=== PATIENT | female | born 1990 | race Two or more races ===

== ENCOUNTER → 2024-05-24 | Outpatient (CLI) | payer BC, SELFPAY ==
[2024-05-24 11:25] LABS: Basophils % (Auto) 1 % (0-2.5); Eosinophils # (Auto) 0.1 Thou/mm3 (0.0-0.5); Eosinophils % (Auto) 1 % (0-10); Hematocrit 35.6 % (36.0-46.0); Hemoglobin 12.1 g/dL (12.0-16.0); Immature Granulocytes % (Auto) 0 % (0-0); Immature Granulocytes Auto 0.01 Thou/mm3 (0.00-0.00); Lymphocytes # (Auto) 1.9 Thou/mm3 (1.0-4.8); Lymphocytes % (Auto) 29 % (10-50); Mean Corpuscular Hemoglobin 30.2 pg (25.0-35.0); Mean Corpuscular Volume 89 fL (80-100); Monocytes # (Auto) 0.5 Thou/mm3 (0.0-0.8); Monocytes % (Auto) 7 % (0-12); Neutrophils # (Auto) 4.2 Thou/mm3 (1.8-7.7); Neutrophils % (Auto) 63 % (37-80); Nucleated Red Blood Cell % 0 /100 WBC (0); Platelet Count 281 Thou/mm3 (140-440); RDW Standard Deviation 42.1 fL (36.4-46.3); Red Blood Count 4.01 Miln/mm3 (4.00-5.20); White Blood Count 6.7 Thou/mm3 (3.6-11.0)
[2024-05-24 11:45] LABS: Glucose Estimated Average 100 mg/dL (80-131); Hemoglobin A1C 5.1 % Hgb (4.8-6.0)
[2024-05-24 11:50] LABS: T4 (Thyroxine) 7.5 mcg/dL (4.5-10.9)
[2024-05-24 12:02] LABS: Alanine Aminotransferase 15 U/L (10-49); Albumin, Serum 4.7 gm/dL (3.5-5.0); Albumin/Globulin Ratio 1.8 (1.2-2.2); Alkaline Phosphatase 61 U/L (46-116); Anion Gap 7 (7-16); Aspartate Amino Transferase 18 U/L (0-34); BUN/Creatinine Ratio 19 Ratio (12-20); Bilirubin,Total 0.5 mg/dL (0.3-1.2); Blood Urea Nitrogen 13 mg/dL (9-23); Calcium 9.4 mg/dL (8.3-10.6); Calcium (Corrected) 9.4 mg/dL (8.5-10.1); Carbon Dioxide 27.5 mMol/L (20.0-31.0); Cardiac Risk Estimate 4.5 RATIO (3.7-5.6); Chloride 103 mMol/L (98-107); Cholesterol 200 mg/dL (132-200); Creatinine (Component) 0.7 mg/dL (0.6-1.3); Globulin 2.6 gm/dL (2.3-3.5); Glucose 93 mg/dL (74-106); HDL Cholesterol 44 mg/dL (40-60); LDL Cholesterol,Calculated 130 mg/dL (0-130); Osmolality,Calculated 273 (275-295); Potassium 4.5 mMol/L (3.4-5.1); Sodium 137 mMol/L (136-145); Thyroid Stimulating Hormone 0.83 uIU/mL (0.55-4.78); Total Protein 7.3 gm/dL (5.7-8.2); Triglycerides 129 mg/dL (30-150); eGFR > 60 See Note
== END | disposition home or self-care (01) ==
LOC: COPL 10:46
PROVIDERS: PCP Family Medicine; Referring Provider Family Medicine; Visit Provider Family Medicine
DX: R03.0 Elevated blood-pressure reading, without diagnosis of hypertension (principal); R79.9 Abnormal finding of blood chemistry, unspecified
CPT/HCPCS: 36415; 80053; 80061; 83036; 84436; 84443; 85025

== ENCOUNTER 2024-10-12 10:47 | Outpatient (AMB) | payer BC, SELFPAY ==
[2024-10-12 11:26] VITALS: BP 136/62; PULSE 108; RESP 18; TEMP 36.2; O2SAT 98; BMI 23.8
--- NOTE | 2024-10-12 11:26 | AMB.GYNCLNOT ---
Vital Signs 10/12/24 11:26 Height 1.65 m Height Method Stated Weight 64.92 kg Weight Measurement Method Standing Scale BMI 23.8 BP 136/62 H Blood Pressure Source Automatic Cuff Blood Pressure Location Left Upper Arm Position Sitting Respiration 18 Pulse 108 H Pulse Source Monitor Temp 97.2 F Temp Source Oral Pulse Oximetry (%) 98 Oxygen Delivery Method Room Air Allergies/Home Meds Allergies & Medications Allergies NKA* Allergy (Uncoded 10/12/24 11:28) Medication Reconciliation vitamin #56-iron 35 mg and 5 mg-folic acid 1 mg-dha capsule 1 cap PO QDAY 10/12/24 [History] Intake Visit Data Collection New Patient or Established: New Patient (never been to [facility]) Reason for Visit:: CONFIRMATION OF Seen by Clinical Staff ONLY (RN/MA): No Time Study Analyst Required: No Do You Feel Safe at Home: Yes Authorities Contacted: N/A PCP or OBGYN visit in last 3 months: Yes Hx Now: Yes Are you currently on any form of Control: No Pain Present Currently: No Pain Scale Used: Salas-Arvizu/Numerical Pain scale:: 0 Smoking Status Smoking Status: Never smoker 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 Other Relevant History: Has seasonal allergies Denies any other chronic medical conditions Questionnaires Covid-19 Vaccine Questionnaire Has patient been vacinated for Covid-19 Have you been vacinated for Covid-19: Yes PHQ-9 PHQ-2 Over the last 2 weeks, how often have you been bothered by any of the following problems? 1. Little interest or pleasure in doing things: not at all 2. Feeling down, depressed, or hopeless: not at all Total score: 0 PHQ-9 3. Trouble falling or staying asleep, or sleeping too much: Not at all 4. Feeling tired or having little energy: Not at all 5. Poor appetite or overeating: Not at all 6. Feeling bad about yourself - or that you are a failure or have let yourself or your family down: Not at all 7. Trouble concentrating on things, such as reading the newspaper or watching television: Not at all 8. Moving or speaking so slowly that other people could have noticed? - Or the opposite - being so fidgety or restless that you have been moving around a lot more than usual: not at all 9. Thoughts that you would be better off or of hurting yourself in some way: Not at all Total score: 0 If you checked off any problems, how difficult have these problems made it for you to do your work, take care of things at home, or get along with other people?: not difficult at all Source: Developed by Drs. Avila Dial, Fawn Lema, Pj Baltazar and colleagues, with an educational harlan from [employer]. 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 She is sure of her last menstrual period which was 07/20/2024. She has been trying to get in to see an obstetrical provider. She denies any cramping or bleeding. She states she had a miscarriage at 10 weeks in 2022. She did not need a D&C. The patient thought she was done having babies before that and when she that , both her and her decided they wanted one more. She has a 14-year-old daughter at home and 9-year-old son and an 8-year-old son. She states the smallest baby was 8 lbs 1 oz and the largest was 8 lbs 11oz. She denies any problems with her pregnancies or deliveries. Dr. Yudith Martinez is her primary care Review of Systems Review of Systems Narrative Review of Systems: Mild nausea and vomiting. Seasonal allergies. The patient also reports fatigue. Exam Narrative Physical exam: Patient appears slightly pale. Fundus is firm and nontender General General Appearance: alert, in no apparent distress, comfortable, cooperative, healthy appearing and well groomed Results Objective Laboratory: test is positive in the office today Office Procedures OB Clinic LOC & Office Proc's Nursing/Assessment Patient Status: Initial/New Patient OB Clinic Nursing Assessment: Medication Reconciliation, Update PMH in EMR and Vital Signs OB Clinic Coordination of Care: Education Complex Pt/Fam, Consent,records obtained, informed consent, Lab and Imaging orders, Results/Orders obtained and Staff clarify orders New Patient Charge New Patient Point Assignment: [id number] New Patient Point Charge: HIDES INSPECTOR Level 3 ([id number]) In Clinic Bedside tests Bedside HCG: Yes Results Urine HCG Urine HCG Positive Last Edit by Geovanna Lee MA on 10/12/24 11:31 Assessment & Plan Diagnosis / Problem List (1) : Status: Acute Qualifiers: Weeks of gestation: 12 weeks Qualified Code(s): Z3A.12 - 12 weeks gestation of Assessment and Plan: LMP 07/20/2024. EDC by LMP 04/29/2025 which would make the patient 11-1/2 weeks . By ultrasound today patient is 12 weeks 5 days with an EDC of 04/20/2025. Check labs. Check official ultrasound. Follow-up in 4 weeks. Additional Plan Follow Up: 4 Weeks OB Ultrasound Indication Indication: Size dates and viability OB Ultrasound Ultrasound technique: transabdominal Gestational sac assessment: Presence, location, size, shape: A single live intrauterine is present with a crown-rump length of 6.29 cm corresponding to 12 weeks and 5 days with an EDC 04/20/2025. Cardiac activity is noted at 142 bpm
== END 2024-10-12 11:57 | disposition home or self-care (01) ==
LOC: HODSOBC 10:47
PROVIDERS: PCP Family Medicine; Referring Provider Family Medicine; Supervising Provider Obstetrics & Gynecology; Visit Provider Obstetrics & Gynecology
DX: Z32.01 Encounter for pregnancy test, result positive (principal)
CPT/HCPCS: 81025; 99203; G0463

== ENCOUNTER → 2024-10-12 | Outpatient (CLI) | payer BC, SELFPAY ==
[2024-10-12 12:48] LABS: Misc Send Out* See Sep Rpt
[2024-10-12 13:25] LABS: Basophils % (Auto) 0 % (0-2.5); Eosinophils # (Auto) 0.1 Thou/mm3 (0.0-0.5); Eosinophils % (Auto) 1 % (0-10); Hematocrit 32.6 % (36.0-46.0); Hemoglobin 11.7 g/dL (12.0-16.0); Immature Granulocytes % (Auto) 0 % (0-0); Immature Granulocytes Auto 0.05 Thou/mm3 (0.00-0.00); Lymphocytes # (Auto) 1.8 Thou/mm3 (1.0-4.8); Lymphocytes % (Auto) 14 % (10-50); Mean Corpuscular HGB Conc 35.9 g/dl (31.0-37.0); Mean Corpuscular Volume 86 fL (80-100); Monocytes # (Auto) 0.7 Thou/mm3 (0.0-0.8); Monocytes % (Auto) 6 % (0-12); Neutrophils # (Auto) 10.2 Thou/mm3 (1.8-7.7); Neutrophils % (Auto) 79 % (37-80); Nucleated Red Blood Cell % 0 /100 WBC (0); Platelet Count 324 Thou/mm3 (140-440); RDW Standard Deviation 39.1 fL (36.4-46.3); Red Blood Count 3.78 Miln/mm3 (4.00-5.20); White Blood Count 12.8 Thou/mm3 (3.6-11.0)
[2024-10-12 13:36] LABS: Glucose Estimated Average 97 mg/dL (80-131)
[2024-10-12 13:54] LABS: Syphilis Nonreactive (Nonreactive)
[2024-10-12 13:55] LABS: HIV (1&2) Antibody Rapid Non-Reactive
[2024-10-12 14:14] LABS: Hepatitis B Surface Antigen Non Reactive (Non React); Hepatitis C Antibody Non Reactive (Non React); Rubella, IgG Antibody Reactive (Immune)
[2024-10-18 07:02] LABS: Sm Antibody* <1.0 NEG AI (<1.0 NEGATIVE)
== END | disposition home or self-care (01) ==
LOC: COPL 12:20
PROVIDERS: PCP Family Medicine; Referring Provider Obstetrics & Gynecology; Visit Provider Obstetrics & Gynecology
DX: Z34.90 Encounter for supervision of normal pregnancy, unspecified, unspecified trimester (principal); Z3A.00 Weeks of gestation of pregnancy not specified
CPT/HCPCS: 36415; 83036; 85025; 86235; 86703; 86762; 86780; 86803; 86850; 86900; 86901; 87340; 87491; 87591; 87661

== ENCOUNTER → 2024-10-13 | Outpatient (CLI) | payer BC, SELFPAY ==
[2024-10-14 10:42] LABS: Chlamydia trachomatis PCR Negative (Not Detect); Neisseria Gonorrhoeae DNA PCR Negative (Not Detect); Trichomonas Negative (Negative)
== END | disposition home or self-care (01) ==
LOC: SLDO 15:47
PROVIDERS: Referring Provider Obstetrics & Gynecology; Visit Provider Obstetrics & Gynecology
DX: Z34.90 Encounter for supervision of normal pregnancy, unspecified, unspecified trimester (principal)
CPT/HCPCS: 87086; 87491; 87591; 87661

== ENCOUNTER → 2024-10-31 | Outpatient (CLI) | payer BC, SELFPAY ==
--- NOTE | 2024-10-31 11:30 | XR_ITS ---
Examination: Complete OB ultrasound greater than 14 weeks Date and time of exam: October 31, 2024 1135 hours INDICATIONS: Unknown size and dates Findings: Viable intrauterine single fetus with single amniotic sac presentation variable Cardiac motion 121 BPM Placenta posterior grade 1 Umbilical cord insertion seen Amniotic fluid index 9.7 cm Cervix 4.7 cm Right ovary 3.3 cm arterial flow Left ovary 2.4 cm arterial flow. Composite estimated gestational age based on BPD, head circumference, abdominal circumference, femur length is 15 weeks 2 days Estimated weight 120.8 g. Survey of intracranial anatomy, spinal anatomy, abdominal anatomy, four-chamber heart performed with no abnormalities identified. Impression: Viable intrauterine gestation variable presentation.
== END | disposition home or self-care (01) ==
PROVIDERS: PCP Family Medicine; Referring Provider Obstetrics & Gynecology; Visit Provider Obstetrics & Gynecology
DX: O26.849 Uterine size-date discrepancy, unspecified trimester (principal); Z3A.15 15 weeks gestation of pregnancy
CPT/HCPCS: 76805

== ENCOUNTER 2024-11-14 09:46 | Outpatient (AMB) | payer BC, SELFPAY ==
[2024-11-14 10:02] VITALS: BP 120/72; PULSE 85; RESP 17; TEMP 37; O2SAT 98; BMI 25.0
--- NOTE | 2024-11-14 10:02 | OBCLNT_ITS ---
Vital Signs 11/14/24 10:02 Height 1.65 m Height Method Measured Weight 68.266 kg Weight Measurement Method Standing Scale BMI 25.0 BP 120/72 Blood Pressure Source Automatic Cuff Blood Pressure Location Right Upper Arm Position Sitting Respiration 17 Pulse 85 Pulse Source Monitor Temp 98.6 F Temp Source Temporal Artery Scan Pulse Oximetry (%) 98 Oxygen Delivery Method Room Air Allergies/Home Meds Allergies & Medications Allergies amoxicillin Allergy (Verified 11/14/24 10:04) PENCILLIN Allergy (Uncoded 11/14/24 10:04) Medication Reconciliation vitamin #56-iron 35 mg and 5 mg-folic acid 1 mg-dha capsule 1 cap PO QDAY 10/12/24 [History Confirmed 11/14/24] Intake Visit Data Collection New Patient or Established: Established Patient (seen at [facility] within 3 years) Reason for Visit:: OBI Consent obtained for Telemed Visit: No Seen by Clinical Staff ONLY (RN/MA): No Cleaner Window Required: No Do You Feel Safe at Home: Yes Authorities Contacted: N/A PCP or OBGYN visit in last 3 months: Yes Date of Last PCP or OBGYN visit: 10/12/24 Hx Now: Yes Are you currently on any form of Control: No Last menstrual period: 07/20/24 Pain Present Currently: No Pain Scale Used: Salas-Arvizu/Numerical Pain scale:: 0 Smoking Status Smoking Status: Never smoker Questionnaires Covid-19 Vaccine Questionnaire Has patient been vacinated for Covid-19 Have you been vacinated for Covid-19: Yes PHQ-9 PHQ-2 Over the last 2 weeks, how often have you been bothered by any of the following problems? 1. Little interest or pleasure in doing things: not at all PHQ-9 8. Moving or speaking so slowly that other people could have noticed? - Or the opposite - being so fidgety or restless that you have been moving around a lot more than usual: not at all Source: Developed by Drs. Avila Dial, Fawn Lema, Pj Baltazar and colleagues, with an educational harlan from [employer]. 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 She was seen about a month ago and had an ultrasound and all lab work performed. Today she feels good. She is with the father the baby. OB Initial Visit OB Flowsheet OB Flowsheet Initial Weight: 67 kg Date -?-?-?-?-?-?-?-?-?-?-?-?- EGA Weight BP Alb Glu CTX Pres Fundal ht FHR Mov Dilation Station Effacement Hx Notes Visit Note 11/14/24 -?-?-?-?-?-?-?-?-?-?-?-?- 16w 5d 68.266 kg (+1265.651 g) 120/72 16 143 absent labs reviewed. Ultrasound at 7 weeks gives EDC of 04/22/2025 declines NIPT. Okay for level 2 ultrasound. Menstrual History Menstrual reliability: definite Flow: normal Menstrual regularity: regular Monthly: Yes Age at menarche: 12 On control pills at conception: No Date of positive home test: 08/16/24 OB History : 5 Para: 3 Hx # Pregnancies: 0 Hx Total # of Abortions (Spontaneous & Elective): 1 # of Living Children: 3 Delivery History 1st : Child's name: MILLICENT date: 03/11/10 sex: female Gestational age at delivery (weeks): 38 Delivery type: vaginal weight (lbs): 3628.739 g History of depression before or after : No 2nd : Child's name: ERIC date: 10/31/14 sex: male Gestational age at delivery (weeks): 38 Delivery type: vaginal weight (lbs): 3628.739 g weight (oz): 198.447 g History of depression before or after : No 3rd : Child's name: SHAINA date: 04/15/16 sex: male Gestational age at delivery (weeks): 38 Delivery type: vaginal weight (lbs): 3628.739 g weight (oz): 311.845 g History of depression before or after : No Infection History & Risk Evaluation History of STDs: none HIV risk evaluation: low risk Hepatitis B risk evaluation: low risk Patient or partner has history of Genital Herpes: No Genetic Screening & History Genetic Screening/Teratology Counseling - Includes patient, baby's father, or anyone in either family with: 1. Patient's age 35 years or older as of estimated date of delivery: No 2. Thalassemia (Irish, Bruneian, Mediterranean, or Background); MCV less than 80: No 3. Neural Tube Defect (Meningomyelocele, Spina Bifida, or Anencephaly): No 4. Congenital Heart Defect: No 5. Down Syndrome: No 6. Gatito-Sachs (Ashkenazi Church, Cajun, Latvian Senegalese): No 7. Alexsander Disease (Ashkenazi Church): No 8. Familial Dysautonomia (Ashkenazi Church): No 9. Sickle Cell Disease or Trait (): No 10. Hemophilia or other blood disorders: No 11. Muscular Dystrophy: No 12. Cystic Fibrosis: No 13. Shannan's Chorea: No 14. Mental Retardation/Autism: No 15. Other inherited genetic or chromosomal disorder: No 16. Maternal Metabolic Disorder (EG,TYPE 1 Diabetes, PKU): No 17. Patient or baby's father had a child with defects not listed above: No 19. Medications (including supplements, vitamins, herbs or otc drugs)/illicit/recreational drugs/alcohol since last menstrual period: No Infection History 1. Live with someone with TB or exposed to TB: No 2. Rash or viral illness since last menstrual period: No 3. Hepatitis B,C: No Other (see comments) Source: [employer] Office Procedures OB Clinic LOC & Office Proc's Nursing/Assessment Patient Status: Established Patient OB Clinic Nursing Assessment: Medication Reconciliation, Update PMH in EMR and Vital Signs OB Clinic Coordination of Care: Complex Care and Chronic Disease 1-5, Complex Care/Chronic Disease 5 or more, Consent,records obtained, informed consent and 4+ Authorizations needed Special Needs: Heart tones Established Patient Charge Established Patient Point Assignment: 150 Established Patient Point Charge: EP Level 4 (120-155) Assessment & Plan Diagnosis / Problem List (1) : Status: Acute Qualifiers: Weeks of gestation: 16 weeks Qualified Code(s): Z3A.16 - 16 weeks gestation of Assessment and Plan: labs reviewed. Had ultrasound 10/31/2024 at 15-2/7 weeks giving a due date of 04/22/2025. (2) Advanced maternal age (AMA) in : Status: Acute Assessment and Plan: Declines NIPT. Orly to authorize for level 2 ultrasound.
== END 2024-11-14 10:43 | disposition home or self-care (01) ==
LOC: HODSOBC 09:46
PROVIDERS: PCP Obstetrics & Gynecology; Referring Provider Obstetrics & Gynecology; Supervising Provider Obstetrics & Gynecology; Visit Provider Obstetrics & Gynecology
DX: O09.522 Supervision of elderly multigravida, second trimester (principal); Z53.29 Procedure and treatment not carried out because of patient's decision for other reasons; Z3A.16 16 weeks gestation of pregnancy; Z88.0 Allergy status to penicillin
CPT/HCPCS: 99214; G0463

== ENCOUNTER 2024-12-12 10:16 | Outpatient (AMB) | payer BC, SELFPAY ==
--- NOTE | 2024-12-12 10:29 | OBCLNT_ITS ---
Vital Signs 12/12/24 10:30 Height 1.65 m Height Method Measured Weight 70.42 kg Weight Measurement Method Standing Scale BMI 25.8 BP 126/74 Blood Pressure Source Automatic Cuff Blood Pressure Location Right Upper Arm Position Sitting Respiration 17 Pulse 92 Pulse Source Monitor Temp 98.0 F Temp Source Temporal Artery Scan Pulse Oximetry (%) 99 Oxygen Delivery Method Room Air Allergies/Home Meds Allergies & Medications Allergies amoxicillin Allergy (Verified 12/12/24 10:30) PENCILLIN Allergy (Uncoded 12/12/24 10:30) Medication Reconciliation vitamin #56-iron 35 mg and 5 mg-folic acid 1 mg-dha capsule 1 cap PO QDAY 10/12/24 [History Confirmed 12/12/24] Intake Visit Data Collection New Patient or Established: Established Patient (seen at [facility] within 3 years) Reason for Visit:: OBC Consent obtained for Telemed Visit: No Seen by Clinical Staff ONLY (RN/MA): No Ballpoint Pens Assembler Required: No Do You Feel Safe at Home: Yes Authorities Contacted: N/A PCP or OBGYN visit in last 3 months: Yes Date of Last PCP or OBGYN visit: 11/14/24 Hx Now: Yes Are you currently on any form of Control: No Pain Present Currently: No Pain Scale Used: Salas-Arvizu/Numerical Pain scale:: 0 Smoking Status Smoking Status: Never smoker Questionnaires Covid-19 Vaccine Questionnaire Has patient been vacinated for Covid-19 Have you been vacinated for Covid-19: Yes PHQ-9 PHQ-2 Over the last 2 weeks, how often have you been bothered by any of the following problems? 1. Little interest or pleasure in doing things: not at all PHQ-9 8. Moving or speaking so slowly that other people could have noticed? - Or the opposite - being so fidgety or restless that you have been moving around a lot more than usual: not at all Source: Developed by Drs. Avila Dial, Fawn Lema, Pj Baltazar and colleagues, with an educational harlan from [employer]. 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 Ultrasound at 7 weeks gives EDC of 04/22/2025 declines NIPT. Okay for level 2 ultrasound. 12/12/24 -?-?-?-?-?-?-?-?-?-?-?-?- 20w 5d 70.42 kg (+3420.215 g) 126/74 absent unknown 21 134 act melodie Good movement. No contractions or vaginal bleeding. No loss of fluids. Pap reviewed. She did have positive yeast but has no symptoms. MILO Calculator Estimated Delivery Date Method Current WG Current Estimate 04/26/25 LMP (Certain) 20w 5d Expected Delivery Route/Plan -0-1-3 History of vaginal delivery x 3 babies weighed between 8 pounds 1 ounce and 8 pounds 11 ounces Has a 14-year-old daughter, 9-year-old son, 8-year-old son at home. AMA: Declined NIPT. On baby aspirin. For level 2 ultrasound. Notes Visit Date: 12/12/24 Last Updated by: Delilah Benton (OB Clinic)MD PAP WNL. GC-/Chlam- Visit Date: 11/14/24 Last Updated by: Delilah Benton (OB Clinic)MD labs on the chart O+\antibody negative /rubella immune\RPR nonreactive\hepatitis C-\hepatitis B surface antigen negative\HIV negative\GC negative\chlamydia negative\hemoglobin 11.7. Office Procedures OB Clinic LOC & Office Proc's Nursing/Assessment Patient Status: Established Patient OB Clinic Nursing Assessment: Medication Reconciliation, Update PMH in EMR and Vital Signs OB Clinic Coordination of Care: Complex Care and Chronic Disease 1-5, Co nsent,records obtained, informed consent, Education Simp Pt/Fam, 4+ Authorizations needed, Lab and Imaging orders and Results/Orders obtained Special Needs: Heart tones Established Patient Charge Established Patient Point Assignment: 150 Established Patient Point Charge: EP Level 4 (120-155) Assessment & Plan Diagnosis / Problem List (1) Advanced maternal age (AMA) in : Status: Acute Plan: For Level II US authorized 4 weeks ago (2) : Status: Acute Qualifiers: Weeks of gestation: 20 weeks Qualified Code(s): Z3A.20 - 20 weeks gestation of
[2024-12-12 10:30] VITALS: BP 126/74; PULSE 92; RESP 17; TEMP 36.7; O2SAT 99; BMI 25.8
== END 2024-12-12 11:37 | disposition home or self-care (01) ==
LOC: HODSOBC 10:16
PROVIDERS: Supervising Provider Obstetrics & Gynecology; Visit Provider Obstetrics & Gynecology
DX: O09.522 Supervision of elderly multigravida, second trimester (principal); Z3A.20 20 weeks gestation of pregnancy; Z53.29 Procedure and treatment not carried out because of patient's decision for other reasons; Z88.0 Allergy status to penicillin
CPT/HCPCS: 99214; G0463

== ENCOUNTER 2025-01-11 09:20 | Outpatient (AMB) | payer BC, SELFPAY ==
[2025-01-11 09:33] VITALS: BP 117/75; PULSE 91; RESP 16; TEMP 36.8; O2SAT 98; BMI 26.6
--- NOTE | 2025-01-11 09:33 | OBCLNT_ITS ---
Vital Signs 01/11/25 09:33 Height 1.65 m Height Method Stated Weight 72.631 kg Weight Measurement Method Standing Scale BMI 26.6 BP 117/75 Blood Pressure Source Automatic Cuff Blood Pressure Location Left Upper Arm Position Sitting Respiration 16 Pulse 91 Pulse Source Monitor Temp 98.2 F Temp Source Oral Pulse Oximetry (%) 98 Oxygen Delivery Method Room Air Allergies/Home Meds Allergies & Medications Allergies amoxicillin Allergy (Verified 01/11/25 09:34) PENCILLIN Allergy (Uncoded 01/11/25 09:34) Medication Reconciliation vitamin no.56-iron 35 mg and 5 mg-folic acid 1 mg-dha capsule 1 cap PO QDAY 10/12/24 [History Confirmed 01/11/25] Intake Visit Data Collection New Patient or Established: Established Patient (seen at [facility] within 3 years) Reason for Visit:: CARE Seen by Clinical Staff ONLY (RN/MA): No Substitute Nurse Required: No Do You Feel Safe at Home: Yes Authorities Contacted: N/A PCP or OBGYN visit in last 3 months: Yes Hx Now: Yes Are you currently on any form of Control: No Pain Present Currently: No Pain Scale Used: Salas-Arvizu/Numerical Pain scale:: 0 Smoking Status Smoking Status: Never smoker Questionnaires Covid-19 Vaccine Questionnaire Has patient been vacinated for Covid-19 Have you been vacinated for Covid-19: Yes PHQ-9 PHQ-2 Over the last 2 weeks, how often have you been bothered by any of the following problems? 1. Little interest or pleasure in doing things: not at all 2. Feeling down, depressed, or hopeless: not at all Total score: 0 PHQ-9 3. Trouble falling or staying asleep, or sleeping too much: Not at all 4. Feeling tired or having little energy: Not at all 5. Poor appetite or overeating: Not at all 6. Feeling bad about yourself - or that you are a failure or have let yourself or your family down: Not at all 7. Trouble concentrating on things, such as reading the newspaper or watching television: Not at all 8. Moving or speaking so slowly that other people could have noticed? - Or the opposite - being so fidgety or restless that you have been moving around a lot more than usual: not at all 9. Thoughts that you would be better off or of hurting yourself in some way: Not at all Total score: 0 Source: Developed by Drs. Avila Dial, Fawn Lema, Pj Baltazar and colleagues, with an educational harlan from [employer]. 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 Ultrasound at 7 weeks gives EDC of 04/22/2025 declines NIPT. Okay for level 2 ultrasound. 12/12/24 -?-?-?-?-?-?-?-?-?-?-?-?- 20w 5d 70.42 kg (+3420.215 g) 126/74 absent unknown 21 134 act melodie Good movement. No contractions or vaginal bleeding. No loss of fluids. Pap reviewed. She did have positive yeast but has no symptoms. 01/11/25 -?-?-?-?-?-?-?-?-?-?-?-?- 25w 0d 72.631 kg (+5631.478 g) 117/75 absent unknown 26 146 act melodie Goof FM No UCs or VB Reviewed level [address] Kirk. Small VSD otherwise normal anatomy. Plan for echo in 2 weeks and he ordered this. Declined NIPT. Knows it is a girl. MILO Calculator Estimated Delivery Date Method Current WG Current Estimate 04/26/25 LMP (Certain) 25w 0d Expected Delivery Route/Plan -0-1-3 History of vaginal delivery x 3 babies weighed between 8 pounds 1 ounce and 8 pounds 11 ounces Has a 14-year-old daughter, 9-year-old son, 8-year-old son at home. AMA: Declined NIPT. On baby aspirin. For level 2 ultrasound. Specific Issue/Plans AMA: Declined NIPT. Level [address] Yelena maldonado. Notes Visit Date: 01/11/25 Last Updated by: Delilah Benton (OB Clinic)MD Will do glucose challenge test today Now has 2 boys and will have 2 girls. Leg cramps recommended potassium 8 mEq and magnesium 250 mg. Visit Date: 12/12/24 Last Updated by: Delilah Benton (OB Clinic)MD PAP WNL. GC-/Chlam- Visit Date: 11/14/24 Last Updated by: Delilah Benton (OB Clinic)MD labs on the chart O+\antibody negative /rubella immune\RPR nonreactive\hepatitis C-\hepatitis B surface antigen negative\HIV negative\GC negative\chlamydia negative\hemoglobin 11.7. Office Procedures OB Clinic LOC & Office Proc's Nursing/Assessment Patient Status: Established Patient OB Clinic Nursing Assessment: Medication Reconciliation, Update PMH in EMR and Vital Signs OB Clinic Coordination of Care: Complex Care and Chronic Disease 1-5, Consent,records obtained, informed consent, Education Simp Pt/Fam, 1 Ins Authorization, Lab and Imaging orders, Results/Orders obtained and Staff clarify orders Special Needs: Heart tones Established Patient Charge Established Patient Point Assignment: 150 Established Patient Point Charge: EP Level 4 (120-155) Assessment & Plan Diagnosis / Problem List (1) Advanced maternal age (AMA) in : Status: Acute Plan: Declined NIPT. Normal level 2 ultrasound. Small VSD. Echo ordered. (2) : Status: Acute Qualifiers: Weeks of gestation: 25 weeks Qualified Code(s): Z3A.25 - 25 weeks gestation of Plan: GCT ordered.
== END 2025-01-11 09:55 | disposition home or self-care (01) ==
PROVIDERS: Supervising Provider Obstetrics & Gynecology; Visit Provider Obstetrics & Gynecology
DX: O09.522 Supervision of elderly multigravida, second trimester (principal); Z3A.25 25 weeks gestation of pregnancy; Z53.29 Procedure and treatment not carried out because of patient's decision for other reasons; Z88.0 Allergy status to penicillin
CPT/HCPCS: 99214; G0463

== ENCOUNTER → 2025-01-11 | Outpatient (CLI) | payer BC, SELFPAY ==
[2025-01-11 13:24] LABS: Glucose,1 Hour PP 50gm Dose 159 mg/dL (80-140)
== END | disposition home or self-care (01) ==
LOC: COPL 10:23
PROVIDERS: PCP Family Medicine; Referring Provider Obstetrics & Gynecology; Visit Provider Obstetrics & Gynecology
DX: Z34.92 Encounter for supervision of normal pregnancy, unspecified, second trimester (principal); Z3A.25 25 weeks gestation of pregnancy
CPT/HCPCS: 36415; 82950

== ENCOUNTER → 2025-01-27 | Outpatient (CLI) | payer BC, SELFPAY ==
[2025-01-27 08:46] LABS: Glucose,Fasting Gestational 101 mg/dL (70-120)
[2025-01-27 09:46] LABS: Glucose 1 Hour, Gest 194 mg/dL (50-190)
[2025-01-27 10:55] LABS: Glucose 2 Hour,Gest 140 mg/dL (50-165)
[2025-01-27 11:44] LABS: Glucose 3 Hour, Gest 158 mg/dL (50-145)
== END | disposition home or self-care (01) ==
LOC: COPL 07:25
PROVIDERS: PCP Family Medicine; Referring Provider Obstetrics & Gynecology; Visit Provider Obstetrics & Gynecology
DX: Z34.92 Encounter for supervision of normal pregnancy, unspecified, second trimester (principal); Z3A.25 25 weeks gestation of pregnancy
CPT/HCPCS: 36415; 82951; 82952

== ENCOUNTER 2025-02-10 08:44 | Outpatient (AMB) | payer BC, SELFPAY ==
[2025-02-10 08:52] VITALS: BP 130/81; PULSE 87; RESP 16; TEMP 36.2; O2SAT 98; BMI 27.5
--- NOTE | 2025-02-10 08:52 | AMB.OBVISIT ---
Vital Signs 02/10/25 08:52 Height 1.65 m Height Method Stated Weight 74.956 kg Weight Measurement Method Standing Scale BMI 27.5 BP 130/81 Blood Pressure Source Automatic Cuff Blood Pressure Location Left Upper Arm Position Sitting Respiration 16 Pulse 87 Pulse Source Monitor Temp 97.2 F Temp Source Oral Pulse Oximetry (%) 98 Oxygen Delivery Method Room Air Allergies/Home Meds Allergies & Medications Allergies amoxicillin Allergy (Verified 02/10/25 08:53) PENCILLIN Allergy (Uncoded 02/10/25 08:53) Intake Visit Data Collection New Patient or Established: Established Patient (seen at [facility] within 3 years) Reason for Visit:: OBC Seen by Clinical Staff ONLY (RN/MA): No Home Companion Required: No Do You Feel Safe at Home: Yes Authorities Contacted: N/A PCP or OBGYN visit in last 3 months: Yes Date of Last PCP or OBGYN visit: 01/11/25 Hx Now: Yes Are you currently on any form of Control: No Pain Present Currently: No Pain Scale Used: Salas-Arvizu/Numerical Pain scale:: 0 Smoking Status Smoking Status: Never smoker Questionnaires Covid-19 Vaccine Questionnaire Has patient been vacinated for Covid-19 Have you been vacinated for Covid-19: Yes PHQ-9 PHQ-2 Over the last 2 weeks, how often have you been bothered by any of the following problems? 1. Little interest or pleasure in doing things: not at all 2. Feeling down, depressed, or hopeless: not at all Total score: 0 PHQ-9 3. Trouble falling or staying asleep, or sleeping too much: Not at all 4. Feeling tired or having little energy: Not at all 5. Poor appetite or overeating: Not at all 6. Feeling bad about yourself - or that you are a failure or have let yourself or your family down: Not at all 7. Trouble concentrating on things, such as reading the newspaper or watching television: Not at all 8. Moving or speaking so slowly that other people could have noticed? - Or the opposite - being so fidgety or restless that you have been moving around a lot more than usual: not at all 9. Thoughts that you would be better off or of hurting yourself in some way: Not at all Total score: 0 If you checked off any problems, how difficult have these problems made it for you to do your work, take care of things at home, or get along with other people?: not difficult at all Source: Developed by Drs. Avila Dial, Fawn Lema, Pj Baltazar and colleagues, with an educational harlan from [employer]. 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 Ultrasound at 7 weeks gives EDC of 04/22/2025 declines NIPT. Okay for level 2 ultrasound. 12/12/24 <del>?</del> 20w 5d 70.42 kg (+3420.215 g) 126/74 absent unknown 21 134 active Good movement. No contractions or vaginal bleeding. No loss of fluids. Pap reviewed. She did have positive yeast but has no symptoms. 01/11/25 <del>?</del> 25w 0d 72.631 kg (+5631.478 g) 117/75 absent unknown 26 146 active Goof FM No UCs or VB Reviewed level [address] Kirk. Small VSD otherwise normal anatomy. Plan for echo in 2 weeks and he ordered this. Declined NIPT. Knows it is a girl. 02/10/25 <del>?</del> 29w 2d 74.956 kg (+7956.139 g) 130/81 absent unknown 30 134 active Good movement no contractions no loss of fluids Has cottage cheese discharge yellowish in color no odor with itch. Probable yeast vaginitis. Treat with Diflucan. MILO Calculator Estimated Delivery Date Method Current WG Current Estimate 04/26/25 LMP (Certain) 29w 3d Expected Delivery Route/Plan -0-1-3 History of vaginal delivery x 3 babies weighed between 8 pounds 1 ounce and 8 pounds 11 ounces Has a 14-year-old daughter, 9-year-old son, 8-year-old son at home. AMA: Declined NIPT. On baby aspirin. For level 2 ultrasound. Specific Issue/Plans AMA: Declined NIPT. Level [address] Yelena maldonado. Notes Visit Date: 02/10/25 Last Updated by: Delilah Benton ([facility])MD Patient failed glucose test fasting 101/1 hour 194/2-hour 140/3-hour 158. Will get her set up with diabetic counseling and glucometer. Patient bring her sugar log in. CBC and RPR ordered. Tdap given. Flu vaccine encouraged. Patient states she will go to her pharmacy to get a flu shot. Visit Date: 01/11/25 Last Updated by: Delilah Benton ([facility])MD Will do glucose challenge test today Now has 2 boys and will have 2 girls. Leg cramps recommended potassium 8 mEq and magnesium 250 mg. Visit Date: 12/12/24 Last Updated by: Delilah Benton ([facility])MD PAP WNL. GC-/Chlam- Visit Date: 11/14/24 Last Updated by: [facility]ilah [facility])MD labs on the chart O+\antibody negative /rubella immune\RPR nonreactive\hepatitis C-\hepatitis B surface antigen negative\HIV negative\GC negative\chlamydia negative\hemoglobin 11.7. Office Procedures OBC Clinic LOC & Office Proc's Nursing/Assessment Patient Status: Established Patient OB Clinic Nursing Assessment: Medication Reconciliation, Update PMH in EMR and Vital Signs OB Clinic Coordination of Care: Consent,records obtained, informed consent, Education Simp Pt/Fam, Lab and Imaging orders, Results/Orders obtained and Staff clarify orders Special Needs: Heart tones Established Patient Charge Established Patient Point Assignment: 110 Established Patient Point Charge: EP Level 3 (80-115) Immunizations diphth,pertus(acell),tetanus 2.5 Lf unit-8 mcg-5 Lf/0.5mL IM syringe Performing Provider: Delilah Benton ([facility])MD Performing Location: [facility] Administered by: Geovanna Lee MA on 02/10/25 13:40 Dose Route Admin Location Dispensed Lot Number Expiration Date Package NDC NDC Tile Setter Apprentice 0.5 mL IM Left Deltoid 0.5 mL [id number] 03/16/27 [id number] [facility] VIS Given Date VIS Provided VIS Publication Date 02/10/25 Single Vaccine 24 Eligibility Eligibility Date Funding Source Public Non-[facility] Administration Comments: PATIENT WAITED 15 MIN NO REACTION Assessment & Plan Diagnosis / Problem List (1) Advanced maternal age (AMA) in : Status: Acute (2) : Status: Acute Qualifiers: Weeks of gestation: 28 weeks Qualified Code(s): Z3A.28 - 28 weeks gestation of (3) Gestational diabetes mellitus (GDM): Status: Acute Qualifiers: Gestational diabetes mellitus control: unspecified Trimester: third trimester Qualified Code(s): O24.419 - Gestational diabetes mellitus in , unspecified control Plan: Ordered lancets and Accu-Chek.
== END 2025-02-10 09:51 | disposition home or self-care (01) ==
PROVIDERS: Supervising Provider Obstetrics & Gynecology; Visit Provider Obstetrics & Gynecology
DX: O09.523 Supervision of elderly multigravida, third trimester (principal); O09.893 Supervision of other high risk pregnancies, third trimester; O24.419 Gestational diabetes mellitus in pregnancy, unspecified control; Z3A.29 29 weeks gestation of pregnancy; Z23 Encounter for immunization; Z88.0 Allergy status to penicillin
CPT/HCPCS: 90471; 90715; 99213; G0463

== ENCOUNTER → 2025-02-10 | Outpatient (CLI) | payer BC, SELFPAY ==
[2025-02-10 11:21] LABS: Basophils # (Auto) 0.0 Thou/mm3 (0.0-0.2); Basophils % (Auto) 0 % (0-2.5); Eosinophils # (Auto) 0.0 Thou/mm3 (0.0-0.5); Eosinophils % (Auto) 0 % (0-10); Hematocrit 33.5 % (36.0-46.0); Hemoglobin 11.6 g/dL (12.0-16.0); Immature Granulocytes Auto 0.06 Thou/mm3 (0.00-0.00); Lymphocytes # (Auto) 1.4 Thou/mm3 (1.0-4.8); Lymphocytes % (Auto) 13 % (10-50); Mean Corpuscular HGB Conc 34.6 g/dl (31.0-37.0); Mean Corpuscular Hemoglobin 31.7 pg (25.0-35.0); Mean Corpuscular Volume 92 fL (80-100); Monocytes # (Auto) 0.6 Thou/mm3 (0.0-0.8); Monocytes % (Auto) 6 % (0-12); Neutrophils # (Auto) 8.7 Thou/mm3 (1.8-7.7); Neutrophils % (Auto) 80 % (37-80); Nucleated Red Blood Cell # 0.00 Thou/mm3 (0.00-0.00); Nucleated Red Blood Cell % 0 /100 WBC (0); Platelet Count 242 Thou/mm3 (140-440); RDW Standard Deviation 45.9 fL (36.4-46.3); Red Blood Count 3.66 Miln/mm3 (4.00-5.20); White Blood Count 10.8 Thou/mm3 (3.6-11.0)
[2025-02-10 11:37] LABS: Glucose Estimated Average 103 mg/dL (80-131); Hemoglobin A1C 5.2 % Hgb (4.8-6.0)
[2025-02-10 11:49] LABS: Syphilis Nonreactive (Nonreactive)
== END | disposition home or self-care (01) ==
LOC: COPL 10:40
PROVIDERS: PCP Family Medicine; Referring Provider Obstetrics & Gynecology; Visit Provider Obstetrics & Gynecology
DX: Z34.93 Encounter for supervision of normal pregnancy, unspecified, third trimester (principal); Z3A.28 28 weeks gestation of pregnancy
CPT/HCPCS: 36415; 83036; 85025; 86780

== ENCOUNTER 2025-02-23 09:14 | Outpatient (AMB) | payer BC, SELFPAY ==
[2025-02-23 09:19] VITALS: BP 117/69; PULSE 88; RESP 16; TEMP 36.4; O2SAT 98; BMI 27.3
--- NOTE | 2025-02-23 09:19 | OBCLNT_ITS ---
Vital Signs 02/23/25 09:19 Height 1.65 m Height Method Stated Weight 74.503 kg Weight Measurement Method Standing Scale BMI 27.3 BP 117/69 Blood Pressure Source Automatic Cuff Blood Pressure Location Left Upper Arm Position Sitting Respiration 16 Pulse 88 Pulse Source Monitor Temp 97.6 F Temp Source Oral Pulse Oximetry (%) 98 Oxygen Delivery Method Room Air Allergies/Home Meds Allergies & Medications Allergies amoxicillin Allergy (Verified 02/23/25 09:21) PENCILLIN Allergy (Uncoded 02/23/25 09:21) Medication Reconciliation vitamin no.56-iron 35 mg and 5 mg-folic acid 1 mg-dha capsule 1 cap PO QDAY 10/12/24 [History Confirmed 02/23/25] fluconazole 150 mg tablet 150 mg PO QWEEK 3 weeks #3 tabs 02/10/25 [Rx Confirmed 02/23/25] blood sugar diagnostic (Blood Glucose Test strips) #10 ea 02/11/25 [Rx Confirmed 02/23/25] blood-glucose meter #1 ea 02/11/25 [Rx Confirmed 02/23/25] lancets #100 ea 02/11/25 [Rx Confirmed 02/23/25] Intake Visit Data Collection New Patient or Established: Established Patient (seen at [facility] within 3 years) Reason for Visit:: CARE Seen by Clinical Staff ONLY (RN/MA): No Consulting Solution Director Required: No Do You Feel Safe at Home: Yes Authorities Contacted: N/A PCP or OBGYN visit in last 3 months: Yes Hx Now: Yes Are you currently on any form of Control: No Pain Present Currently: No Pain Scale Used: Salas-Arvizu/Numerical Pain scale:: 0 Smoking Status Smoking Status: Never smoker Immunizations Flu Vaccine in the Last 12 Months: No Flu Vaccine Exclusion Criteria: Refused by Patient Questionnaires Covid-19 Vaccine Questionnaire Has patient been vacinated for Covid-19 Have you been vacinated for Covid-19: No PHQ-9 PHQ-2 Over the last 2 weeks, how often have you been bothered by any of the following problems? 1. Little interest or pleasure in doing things: not at all 2. Feeling down, depressed, or hopeless: not at all Total score: 0 PHQ-9 3. Trouble falling or staying asleep, or sleeping too much: Not at all 4. Feeling tired or having little energy: Not at all 5. Poor appetite or overeating: Not at all 6. Feeling bad about yourself - or that you are a failure or have let yourself or your family down: Not at all 7. Trouble concentrating on things, such as reading the newspaper or watching television: Not at all 8. Moving or speaking so slowly that other people could have noticed? - Or the opposite - being so fidgety or restless that you have been moving around a lot more than usual: not at all 9. Thoughts that you would be better off or of hurting yourself in some way: Not at all Total score: 0 Source: Developed by Drs. Avila Dial, Fawn Lema, Pj Baltazar and colleagues, with an educational harlan from [employer]. 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 Ultrasound at 7 weeks gives EDC of 04/22/2025 declines NIPT. Okay for level 2 ultrasound. 12/12/24 -?-?-?-?-?-?-?-?-?-?-?-?- 20w 5d 70.42 kg (+3420.215 g) 126/74 absent unknown 21 134 act melodie Good movement. No contractions or vaginal bleeding. No loss of fluids. Pap reviewed. She did have positive yeast but has no symptoms. 01/11/25 -?-?-?-?-?-?-?-?-?-?-?-?- 25w 0d 72.631 kg (+5631.478 g) 117/75 absent unknown 26 146 act melodie Goof FM No UCs or VB Reviewed level [address] Kirk. Small VSD otherwise normal anatomy. Plan for echo in 2 weeks and he ordered this. Declined NIPT. Knows it is a girl. 02/10/25 -?-?-?-?-?-?-?-?-?-?-?-?- 29w 2d 74.956 kg (+7956.139 g) 130/81 absent unknown 30 134 act melodie Good movement no contractions no loss of fluids H as cottage cheese discharge yellowish in color no odor with itch. Probable yeast vaginitis. Treat with Diflucan. 02/23/25 -?-?-?-?-?-?-?-?-?-?-?-?- 31w 1d 74.503 kg (+7502.546 g) 117/69 absent unknown 32 141 act melodie good movements MILO Calculator Estimated Delivery Date Method Current WG Current Estimate 04/26/25 LMP (Certain) 31w 1d Expected Delivery Route/Plan -0-1-3 History of vaginal delivery x 3 babies weighed between 8 pounds 1 ounce and 8 pounds 11 ounces Has a 14-year-old daughter, 9-year-old son, 8-year-old son at home. AMA: Declined NIPT. On baby aspirin. For level 2 ultrasound. Specific Issue/Plans AMA: Declined NIPT. Level [address] Kirk normal. Notes Visit Date: 02/23/25 Last Updated by: Robyn Dewitt MD patient has labs done 02/10/2025 and potter s a HbA1c of 5.2 and CBC shows Hb of 11.6 and platelets [id number] and RPR is NR 34 years old L3 at 31.1 weeks /GDM on diet / Rh positive / Refused NIPT and second trimester scan normal with Dr Kirk / care follow up her today /discuss contraception/ sterilization options thinking about vasectomy / discussed flu vaccine /discussed diet and parameters for good glycemic control / follow up in 3 weeks / educated on kick count Visit Date: 02/10/25 Last Updated by: Delilah Benton ([facility])MD Patient failed glucose test fasting 101/1 hour 194/2-hour 140/3-hour 158. Will get her set up with diabetic counseling and glucometer. Patient bring her sugar log in. CBC and RPR ordered. Tdap given. Flu vaccine encouraged. Patient states she will go to her pharmacy to get a flu shot. Visit Date: 01/11/25 Last Updated by: Delilah Benton ([facility])MD Will do glucose challenge test today Now has 2 boys and will have 2 girls. Leg cramps recommended potassium 8 mEq and magnesium 250 mg. Visit Date: 12/12/24 Last Updated by: Delilah Benton ([facility])MD PAP WNL. GC-/Chlam- Visit Date: 11/14/24 Last Updated by: Delilah Benton ([facility])MD labs on the chart O+\antibody negative /rubella immune\RPR nonreactive\hepatitis C-\hepatitis B surface antigen negative\HIV negative\GC negative\chlamydia negative\hemoglobin 11.7. Office Procedures OBC Clinic LOC & Office Proc's Nursing/Assessment Patient Status: Established Patient OB Clinic Nursing Assessment: Medication Reconciliation, Update PMH in EMR and Vital Signs OB Clinic Coordination of Care: Complex Care and Chronic Disease 1-5, Consent,records obtained, informed consent, Education Simp Pt/Fam, Lab and Imaging orders, Results/Orders obtained and Staff clarify orders Special Needs: Heart tones Established Patient Charge Established Patient Point Assignment: 135 Established Patient Point Charge: EP Level 4 (120-155) Assessment & Plan Diagnosis / Problem List (1) Gestational diabetes mellitus (GDM): Status: Acute Qualifiers: Gestational diabetes mellitus control: unspecified Trimester: third trimester Qualified Code(s): O24.419 - Gestational diabetes mellitus in , unspecified control (2) Advanced maternal age (AMA) in : Status: Acute (3) : Status: Acute Qualifiers: Weeks of gestation: 28 weeks Qualified Code(s): Z3A.28 - 28 weeks gestation of (4) Uterine size date discrepancy: Status: Acute Qualifiers: Trimester: third trimester Qualified Code(s): O26.843 - Uterine size- date discrepancy, third trimester Assessment and Plan: -0-1-3 History of vaginal delivery x 3 babies weighed between 8 pounds 1 ounce and 8 pounds 11 ounces Has a 14-year-old daughter, 9-year-old son, 8-year-old son at home. AMA: Declined NIPT. On baby aspirin. level 2 ultrasound is normal GDM on diet Does home glucose logs did not bring today last HbA1c is 5.2 on 02/10/2025 Plan continue Glucose monitoring dietary advice given and follow up in 3 weeks
== END 2025-02-23 10:13 | disposition home or self-care (01) ==
LOC: HODSOBC 09:14
PROVIDERS: Supervising Provider Obstetrics & Gynecology; Visit Provider Obstetrics & Gynecology
DX: O09.893 Supervision of other high risk pregnancies, third trimester (principal); O24.410 Gestational diabetes mellitus in pregnancy, diet controlled; O26.843 Uterine size-date discrepancy, third trimester; O09.523 Supervision of elderly multigravida, third trimester; Z3A.31 31 weeks gestation of pregnancy; Z88.0 Allergy status to penicillin
CPT/HCPCS: 99214; G0463

== ENCOUNTER 2025-03-17 10:54 | Outpatient (AMB) | payer BC, SELFPAY ==
[2025-03-17 11:12] VITALS: BP 129/71; PULSE 88; RESP 18; TEMP 36.2; O2SAT 98; BMI 27.5
--- NOTE | 2025-03-17 11:12 | OBCLNT_ITS ---
Vital Signs 03/17/25 11:12 03/17/25 11:59 Height 1.65 m Height Method Stated Weight 74.843 kg Weight Measurement Method Standing Scale BMI 27.5 BP 129/71 129/71 Blood Pressure Source Automatic Cuff Blood Pressure Location Left Upper Arm Position Sitting Respiration 18 18 Pulse 88 88 Pulse Source Monitor Temp 97.2 F 97.2 F Temp Source Oral Pulse Oximetry (%) 98 98 Oxygen Delivery Method Room Air Allergies/Home Meds Allergies & Medications Allergies amoxicillin Allergy (Verified 03/17/25 11:13) PENCILLIN Allergy (Uncoded 03/17/25 11:13) Medication Reconciliation vitamin no.56-iron 35 mg and 5 mg-folic acid 1 mg-dha capsule 1 cap PO QDAY 10/12/24 [History Confirmed 03/17/25] fluconazole 150 mg tablet 150 mg PO QWEEK 3 weeks #3 tabs 02/10/25 [Rx Confirmed 03/17/25] blood sugar diagnostic (Blood Glucose Test strips) #10 ea 02/11/25 [Rx Confirmed 03/17/25] blood-glucose meter #1 ea 02/11/25 [Rx Confirmed 03/17/25] lancets #100 ea 02/11/25 [Rx Confirmed 03/17/25] metformin 500 mg tablet 500 mg PO BID #60 tabs 03/17/25 [Rx] Immunizations Immunizations Flu Vaccine in the Last 12 Months: No Flu Vaccine Exclusion Criteria: No Exclusion Criteria Care OB Visit Log OB Flowsheet Initial Weight: 67 kg Date -?-?-?-?-?-?-?-?-?-?-?-?- EGA Weight BP Alb Glu CTX Pres Fundal ht FHR Mov Dilation Station Effacement Hx Notes Visit Note 11/14/24 -?-?-?-?-?-?-?-?-?-?-?-?- 16w 5d 68.266 kg (+1265.651 g) 120/72 16 143 absent labs reviewed. Ultrasound at 7 weeks gives EDC of 04/22/2025 declines NIPT. Okay for level 2 ultrasound. 12/12/24 -?-?-?-?-?-?-?-?-?-?-?-?- 20w 5d 70.42 kg (+3420.215 g) 126/74 absent unknown 21 134 act melodie Good movement. No contractions or vaginal bleeding. No loss of fluids. Pap reviewed. She did have positive yeast but has no symptoms. 01/11/25 -?-?-?-?-?-?-?-?-?-?-?-?- 25w 0d 72.631 kg (+5631.478 g) 117/75 absent unknown 26 146 act melodie Goof FM No UCs or VB Reviewed level [address] Kirk. Small VSD otherwise normal anatomy. Plan for echo in 2 weeks and he ordered this. Declined NIPT. Knows it is a girl. 02/10/25 -?-?-?-?-?-?-?-?-?-?-?-?- 29w 2d 74.956 kg (+7956.139 g) 130/81 absent unknown 30 134 act melodie Good movement no contractions no loss of fluids H as cottage cheese discharge yellowish in color no odor with itch. Probable yeast vaginitis. Treat with Diflucan. 02/23/25 -?-?-?-?-?-?-?-?-?-?-?-?- 31w 1d 74.503 kg (+7502.546 g) 117/69 absent unknown 32 141 act melodie good movements 03/17/25 -?-?-?-?-?-?-?-?-?-?-?-?- 34w 2d 74.843 kg (+7842.741 g) 129/71 129/71 occasional cephalic 35 141 active good movements MILO Calculator Estimated Delivery Date Method Current WG Current Estimate 04/26/25 LMP (Certain) 34w 4d Expected Delivery Route/Plan -0-1-3 History of vaginal delivery x 3 babies weighed between 8 pounds 1 ounce and 8 pounds 11 ounces Has a 14-year-old daughter, 9-year-old son, 8-year-old son at home. AMA: Declined NIPT. On baby aspirin. For level 2 ultrasound. Specific Issue/Plans AMA: Declined NIPT. Level [address] Kirk normal. Notes Visit Date: 03/17/25 Last Updated by: Robyn Dewitt MD 34 years old L3 at 34.2 weeks /GDM on diet / Rh positive / Refused NIPT and second trimester scan normal with Dr Kirk / care follow up her today /discuss contraception/ sterilization options thinking about vasectomy / discussed flu vaccine /discussed diet and parameters for good glycemic control / follow up in 3 weeks / educated on kick count/ referred for Biweekly NST Visit Date: 02/10/25 Last Updated by: Delilah Benton ([facility])MD/ Us done at Dr Kirk on 03/06/2025 c/w growth in 99th percentile and patients Blood sugars are >100 fasting and PP are around 135 to 145 she refuses insulin and will start on metformin 500 mgm po bid / Keep sugar log and follow up in 2 weeks / VSD is resolved / Flu vaccine today / Biweekly NST ordered Patient failed glucose test fasting 101/1 hour 194/2-hour 140/3-hour 158. Will get her set up with diabetic counseling and glucometer. Patient bring her sugar log in. CBC and RPR ordered. Tdap given. Flu vaccine encouraged. Patient states she will go to her pharmacy to get a flu shot. Visit Date: 01/11/25 Last Updated by: Dleilah Bneton ([facility])MD Will do glucose challenge test today Now has 2 boys and will have 2 girls. Leg cramps recommended potassium 8 mEq and magnesium 250 mg. Visit Date: 12/12/24 Last Updated by: Delilah Benton ([facility])MD PAP WNL. GC-/Chlam- Visit Date: 11/14/24 Last Updated by: Delilah Benton ([facility])MD labs on the chart O+\antibody negative /rubella immune\RPR nonreactive\hepatitis C-\hepatitis B surface antigen negative\HIV negative\GC negative\chlamydia negative\hemoglobin 11.7. Visit Date: 02/23/25 Last Updated by: Robyn Dewitt MD patient has labs done 02/10/2025 and potter s a HbA1c of 5.2 and CBC shows Hb of 11.6 and platelets ste219 and RPR is NR 34 years old L3 at 31.1 weeks /GDM on diet / Rh positive / Refused NIPT and second trimester scan normal with Dr Kirk / care follow up her today /discuss contraception/ sterilization options thinking about vasectomy / discussed flu vaccine /discussed diet and parameters for good glycemic control / follow up in 3 weeks / educated on kick count Visit Date: 02/10/25 Last Updated by: Delilah Benton ([facility])MD Patient failed glucose test fasting 101/1 hour 194/2-hour 140/3-hour 158. Will get her set up with diabetic counseling and glucometer. Patient bring her sugar log in. CBC and RPR ordered. Tdap given. Flu vaccine encouraged. Patient states she will go to her pharmacy to get a flu shot. Visit Date: 01/11/25 Last Updated by: Delilah Benton ([facility])MD Will do glucose challenge test today Now has 2 boys and will have 2 girls. Leg cramps recommended potassium 8 mEq and magnesium 250 mg. Visit Date: 12/12/24 Last Updated by: Delilah Benton ([facility])MD PAP WNL. GC-/Chlam- Visit Date: 11/14/24 Last Updated by: Delilah Benton ([facility])MD labs on the chart O+\antibody negative /rubella immune\RPR nonreactive\hepatitis C-\hepatitis B surface antigen negative\HIV negative\GC negative\chlamydia negative\hemoglobin 11.7. Office Procedures OBC Clinic LOC & Office Proc's Nursing/Assessment Patient Status: Established Patient OB Clinic Nursing Assessment: Medication Reconciliation, Update PMH in EMR and Vital Signs OB Clinic Coordination of Care: Consent,records obtained, informed consent, Education Simp Pt/Fam, Lab and Imaging orders, Results/Orders obtained and Staff clarify orders Special Needs: Heart tones Established Patient Charge Established Patient Point Assignment: 110 Established Patient Point Charge: EP Level 3 (80-115) Injection/Vaccine Admin SQ Im Injection: Yes Immunizations flu vac ts (6mos up)-PF 45 mcg(15mcg x3)/0.5 mL IM syringe Performing Provider: Robyn Dewitt MD Performing Location: [facility] Administered by: Jojo Mcdowell MA on 03/17/25 16:00 Dose Route Admin Location Dispensed Lot Number Expiration Date Pack age [facility] Police Officer 0.5 mL IM Left Deltoid 0.5 mL [id number] 10/24/25 [id number] [employer] VIS Given Date VIS Provided VIS Publication Date 03/17/25 Single Vaccine 24 Eligibility Eligibility Date Funding Source Public Non-[facility] Assessment & Plan Additional Plan duplicate note / see previous from today Follow Up: 2 Weeks
--- NOTE | 2025-03-17 11:40 | OBCLNT_ITS ---
Vital Signs 03/17/25 11:12 03/17/25 11:59 Height 1.65 m Height Method Stated Weight 74.843 kg Weight Measurement Method Standing Scale BMI 27.5 BP 129/71 129/71 Blood Pressure Source Automatic Cuff Blood Pressure Location Left Upper Arm Position Sitting Respiration 18 18 Pulse 88 88 Pulse Source Monitor Temp 97.2 F 97.2 F Temp Source Oral Pulse Oximetry (%) 98 98 Oxygen Delivery Method Room Air Allergies/Home Meds Allergies & Medications Allergies amoxicillin Allergy (Verified 03/17/25 11:13) PENCILLIN Allergy (Uncoded 03/17/25 11:13) Medication Reconciliation vitamin no.56-iron 35 mg and 5 mg-folic acid 1 mg-dha capsule 1 cap PO QDAY 10/12/24 [History Confirmed 03/17/25] fluconazole 150 mg tablet 150 mg PO QWEEK 3 weeks #3 tabs 02/10/25 [Rx Confirmed 03/17/25] blood sugar diagnostic (Blood Glucose Test strips) #10 ea 02/11/25 [Rx Confirmed 03/17/25] blood-glucose meter #1 ea 02/11/25 [Rx Confirmed 03/17/25] lancets #100 ea 02/11/25 [Rx Confirmed 03/17/25] metformin 500 mg tablet 500 mg PO BID #60 tabs 03/17/25 [Rx] Immunizations Immunizations Flu Vaccine in the Last 12 Months: Yes Date of most recent flu vaccination: 03/17/25 Flu Vaccine Exclusion Criteria: Already Received Care OB Visit Log OB Flowsheet Initial Weight: 67 kg Date -?-?-?-?-?-?-?-?-?-?-?-?- EGA Weight BP Alb Glu CTX Pres Fundal ht FHR Mov Dilation Station Effacement Hx Notes Visit Note 11/14/24 -?-?-?-?-?-?-?-?-?-?-?-?- 16w 5d 68.266 kg (+1265.651 g) 120/72 16 143 absent labs reviewed. Ultrasound at 7 weeks gives EDC of 04/22/2025 declines NIPT. Okay for level 2 ultrasound. 12/12/24 -?-?-?-?-?-?-?-?-?-?-?-?- 20w 5d 70.42 kg (+3420.215 g) 126/74 absent unknown 21 134 act melodie Good movement. No contractions or vaginal bleeding. No loss of fluids. Pap reviewed. She did have positive yeast but has no symptoms. 01/11/25 -?-?-?-?-?-?-?-?-?-?-?-?- 25w 0d 72.631 kg (+5631.478 g) 117/75 absent unknown 26 146 act melodie Goof FM No UCs or VB Reviewed level [address] Kirk. Small VSD otherwise normal anatomy. Plan for echo in 2 weeks and he ordered this. Declined NIPT. Knows it is a girl. 02/10/25 -?-?-?-?-?-?-?-?-?-?-?-?- 29w 2d 74.956 kg (+7956.139 g) 130/81 absent unknown 30 134 act melodie Good movement no contractions no loss of fluids H as cottage cheese discharge yellowish in color no odor with itch. Probable yeast vaginitis. Treat with Diflucan. 02/23/25 -?-?-?-?-?-?-?-?-?-?-?-?- 31w 1d 74.503 kg (+7502.546 g) 117/69 absent unknown 32 141 act melodie good movements 03/17/25 -?-?-?-?-?-?-?-?-?-?-?-?- 34w 2d 74.843 kg (+7842.741 g) 129/71 129/71 occasional cephalic 35 141 active good movements MILO Calculator Estimated Delivery Date Method Current WG Current Estimate 04/26/25 LMP (Certain) 34w 4d Expected Delivery Route/Plan -0-1-3 History of vaginal delivery x 3 babies weighed between 8 pounds 1 ounce and 8 pounds 11 ounces Has a 14-year-old daughter, 9-year-old son, 8-year-old son at home. AMA: Declined NIPT. On baby aspirin. For level 2 ultrasound. Specific Issue/Plans AMA: Declined NIPT. Level [address] Kirk normal. Notes Visit Date: 03/17/25 Last Updated by: Robyn Dewitt MD 34 years old L3 at 34.2 weeks /GDM on diet / Rh positive / Refused NIPT and second trimester scan normal with Dr Kirk / care follow up her today /discuss contraception/ sterilization options thinking about vasectomy / discussed flu vaccine /discussed diet and parameters for good glycemic control / follow up in 3 weeks / educated on kick count/ referred for Biweekly NST Visit Date: 02/10/25 Last Updated by: Delilah Benton ([facility])MD/ Us done at Dr Kirk on 03/06/2025 c/w growth in 99th percentile and patients Blood sugars are >100 fasting and PP are around 135 to 145 she refuses insulin and will start on metformin 500 mgm po bid / Keep sugar log and follow up in 2 weeks / VSD is resolved / Flu vaccine today / Biweekly NST ordered Patient failed glucose test fasting 101/1 hour 194/2-hour 140/3-hour 158. Will get her set up with diabetic counseling and glucometer. Patient bring her sugar log in. CBC and RPR ordered. Tdap given. Flu vaccine encouraged. Patient states she will go to her pharmacy to get a flu shot. Visit Date: 01/11/25 Last Updated by: Delilah Benton ([facility])MD Will do glucose challenge test today Now has 2 boys and will have 2 girls. Leg cramps recommended potassium 8 mEq and magnesium 250 mg. Visit Date: 12/12/24 Last Updated by: [facility]MD PAP WNL. GC-/Chlam- Visit Date: 11/14/24 Last Updated by: Delilah Benton ([facility])MD labs on the chart O+\antibody negative /rubella immune\RPR nonrea ctive\hepatitis C-\hepatitis B surface antigen negative\HIV negative\GC negative\chlamydia negative\hemoglobin 11.7. Visit Date: 02/23/25 Last Updated by: Robyn Dewitt MD patient has labs done 02/10/2025 and potter s a HbA1c of 5.2 and CBC shows Hb of 11.6 and platelets [id number] and RPR is NR 34 years old L3 at 31.1 weeks /GDM on diet / Rh positive / Refused NIPT and second trimester scan normal with Dr Kirk / care follow up her today /discuss contraception/ sterilization options thinking about vasectomy / discussed flu vaccine /discussed diet and parameters for good glycemic control / follow up in 3 weeks / educated on kick count Visit Date: 02/10/25 Last Updated by: Delilah Benton ([facility])MD Patient failed glucose test fasting 101/1 hour 194/2-hour 140/3-hour 158. Will get her set up with diabetic counseling and glucometer. Patient bring her sugar log in. CBC and RPR ordered. Tdap given. Flu vaccine encouraged. Patient states she will go to her pharmacy to get a flu shot. Visit Date: 01/11/25 Last Updated by: Delilah Benton ([facility])MD Will do glucose challenge test today Now has 2 boys and will have 2 girls. Leg cramps recommended potassium 8 mEq and magnesium 250 mg. Visit Date: 12/12/24 Last Updated by: Delilah Benton ([facility])MD PAP WNL. GC-/Chlam- Visit Date: 11/14/24 Last Updated by: Delilah Benton ([facility])MD labs on the chart O+\antibody negative /rubella immune\RPR nonreactive\hepatitis C-\hepatitis B surface antigen negative\HIV negative\GC negative\chlamydia negative\hemoglobin 11.7. Office Procedures [facility] Clinic LOC & Office Proc's Nursing/Assessment Patient Status: Established Patient OB Clinic Nursing Assessment: Medication Reconciliation, Update PMH in EMR and Vital Signs OB Clinic Coordination of Care: Consent,records obtained, informed consent, Education Simp Pt/Fam, Lab and Imaging orders, Results/Orders obtained and Staff clarify orders Special Needs: Heart tones Established Patient Charge Established Patient Point Assignment: 110 Established Patient Point Charge: EP Level 3 (80-115) Injection/Vaccine Admin SQ Im Injection: Yes Immunizations flu vac ts (6mos up)-PF 45 mcg(15mcg x3)/0.5 mL IM syringe Performing Provider: Robyn Dewitt MD Performing Location: [facility] Administered by: Jojo Mcdowell MA on 03/17/25 16:00 Dose Route Admin Location Dispensed Lot Number Expiration Date Pack age [facility] [place] Wel[employer] Setter Resistance Machine 0.5 mL IM Left Deltoid 0.5 mL [id number] 10/24/25 [id number] [id number] [employer] VIS Given Date VIS Provided VIS Publication Date 03/17/25 Single Vaccine 24 Eligibility Eligibility Date Funding Source Public Non-[facility] Assessment & Plan Diagnosis / Problem List (1) Gestational diabetes mellitus (GDM): Status: Acute Qualifiers: Gestational diabetes mellitus control: unspecified Trimester: third trimester Qualified Code(s): O24.419 - Gestational diabetes mellitus in preg hannah, unspecified control Plan: not reaching target sugar control and plan o start metformin 500 mgm po BID / keep sugar log (2) Advanced maternal age (AMA) in : Status: Acute Plan: had a anatomy scan on 03/06/[address] Kirk and VSD is resolved / Biweekly NST ordered (3) LGA (large for gestational age) fetus: Status: Acute Plan: emphasized good glycemic control Additional Plan 34 years old L3 at 34.2 weeks /GDM on diet / Rh positive / Refused NIPT and second trimester scan normal with Dr Kirk / care follow up her today /discuss contraception/ sterilization options thinking about vasectomy / discussed flu vaccine /discussed diet and parameters for good glycemic control / follow up in 3 weeks / educated on kick count/ referred for Biweekly NST Review : Visit Date: 02/10/25 Last Updated by: Delilah Benton ([facility])MD/ Us done at Dr Kirk on 03/06/2025 c/w growth in 99th percentile and patients Blood sugars are >100 fasting and PP are around 135 to 145 she refuses insulin and will start on metformin 500 mgm po bid / Keep sugar log and follow up in 2 weeks / VSD is resolved / Flu vaccine today / Biweekly NST ordered Patient failed glucose test fasting 101/1 hour 194/2-hour 140/3-hour 158. Will get her set up with diabetic counseling and glucometer. Patient bring her sugar log in. CBC and RPR ordered. Tdap given. Flu vaccine encouraged. Patient states she will go to her pharmacy to get a flu shot. Visit Date: 01/11/25 Last Updated by: Delilah Benton ([facility])MD Will do glucose challenge test today Now has 2 boys and will have 2 girls. Leg cramps recommended potassium 8 mEq and magnesium 250 mg. Visit Date: 12/12/24 Last Updated by: Delilah Benton ([facility])MD EFRA. GC-/Chlam- Visit Date: 11/14/24 Last Updated by: Delilah Benton ([facility])MD labs on the chart O+\antibody negative /rubella immune\RPR nonreactive\hepatitis C-\hepatitis B surface antigen negative\HIV negative\GC negative\chlamydia negative\hemoglobin 11.7. Visit Date: 02/23/25?? Last Updated by: Robyn Dewitt MD patient has labs done 02/10/2025 and potter s a HbA1c of 5.2 and CBC shows Hb of 11.6 and platelets [id number] and RPR is NR 34 years old L3 at 31.1 weeks /GDM on diet / Rh positive / Refused NIPT and second trimester scan normal with Dr Kirk / care follow up her today /discuss contraception/ sterilization options thinking about vasectomy / discussed flu vaccine /discussed diet and parameters for good glycemic control / follow up in 3 weeks / educated on kick count Visit Date: 02/10/25?? Last Updated by: Delilah Benton ([facility])MD Patient failed glucose test fasting 101/1 hour 194/2-hour 140/3-hour 158. Will get her set up with diabetic counseling and glucometer. Patient bring her sugar log in. CBC and RPR ordered. Tdap given. Flu vaccine encouraged. Patient states she will go to her pharmacy to get a flu shot. Visit Date: 01/11/25?? Last Updated by: Delilah Benton ([facility])MD Will do glucose challenge test today Now has 2 boys and will have 2 girls. Leg cramps recommended potassium 8 mEq and magnesium 250 mg. Visit Date: 12/12/24?? Last Updated by: Delilah Benton ([facility])MD EFRA. GC-/Chlam- Visit Date: 11/14/24?? Last Updated by: Delilah Benton ([facility])MD labs on the chart O+\antibody negative /rubella immune\RPR nonreactive\hepatitis C-\hepatitis B surface antigen negative\HIV negative\GC negative\chlamydia negative\hemoglobin 11.7. Follow Up: 2 Weeks
[2025-03-17 11:59] VITALS: BP 129/71; PULSE 88; RESP 18; TEMP 36.2; O2SAT 98
== END 2025-03-17 11:56 | disposition home or self-care (01) ==
PROVIDERS: Supervising Provider Obstetrics & Gynecology; Visit Provider Obstetrics & Gynecology
DX: O09.523 Supervision of elderly multigravida, third trimester (principal); O09.893 Supervision of other high risk pregnancies, third trimester; O24.415 Gestational diabetes mellitus in pregnancy, controlled by oral hypoglycemic drugs; O36.63X0 Maternal care for excessive fetal growth, third trimester, not applicable or unspecified; Z3A.34 34 weeks gestation of pregnancy; Z23 Encounter for immunization; Z88.0 Allergy status to penicillin
CPT/HCPCS: 90471; 90686; 96372; 99213; G0463; J9060

== ENCOUNTER 2025-03-28 09:23 | Outpatient (AMB) | payer BC, SELFPAY ==
[2025-03-28 09:30] VITALS: BP 122/77; PULSE 79; RESP 18; TEMP 37.1; O2SAT 98; BMI 27.7
--- NOTE | 2025-03-28 09:30 | OBCLNT_ITS ---
Vital Signs 03/28/25 09:30 Height 1.65 m Height Method Stated Weight 75.523 kg Weight Measurement Method Standing Scale BMI 27.7 BP 122/77 Blood Pressure Source Automatic Cuff Blood Pressure Location Left Upper Arm Position Sitting Respiration 18 Pulse 79 Pulse Source Monitor Temp 98.8 F Temp Source Oral Pulse Oximetry (%) 98 Oxygen Delivery Method Room Air Allergies/Home Meds Allergies & Medications Allergies amoxicillin Allergy (Verified 03/28/25 09:31) PENCILLIN Allergy (Uncoded 03/28/25 09:31) Medication Reconciliation vitamin no.56-iron 35 mg and 5 mg-folic acid 1 mg-dha capsule 1 cap PO QDAY 10/12/24 [History Confirmed 03/28/25] fluconazole 150 mg tablet 150 mg PO QWEEK 3 weeks #3 tabs 02/10/25 [Rx Confirmed 03/28/25] blood sugar diagnostic (Blood Glucose Test strips) #10 ea 02/11/25 [Rx Confirmed 03/28/25] blood-glucose meter #1 ea 02/11/25 [Rx Confirmed 03/28/25] lancets #100 ea 02/11/25 [Rx Confirmed 03/28/25] metformin 500 mg tablet 500 mg PO BID #60 tabs 03/17/25 [Rx Confirmed 03/28/25] Immunizations Immunizations Flu Vaccine in the Last 12 Months: No Flu Vaccine Exclusion Criteria: No Exclusion Criteria Care OB Visit Log OB Flowsheet Initial Weight: 67 kg Date -?-?-?-?-?-?-?-?-?-?-?-?- EGA Weight BP Alb Glu CTX Pres Fundal ht FHR Mov Dilation Station Effacement Hx Notes Visit Note 11/14/24 -?-?-?-?-?-?-?-?-?-?-?-?- 16w 5d 68.266 kg (+1265.651 g) 120/72 16 143 absent labs reviewed. Ultrasound at 7 weeks gives EDC of 04/22/2025 declines NIPT. Okay for level 2 ultrasound. 12/12/24 -?-?-?-?-?-?-?-?-?-?-?-?- 20w 5d 70.42 kg (+3420.215 g) 126/74 absent unknown 21 134 act melodie Good movement. No contractions or vaginal bleeding. No loss of fluids. Pap reviewed. She did have positive yeast but has no symptoms. 01/11/25 -?-?-?-?-?-?-?-?-?-?-?-?- 25w 0d 72.631 kg (+5631.478 g) 117/75 absent unknown 26 146 act melodie Goof FM No UCs or VB Reviewed level [address] Kirk. Small VSD otherwise normal anatomy. Plan for echo in 2 weeks and he ordered this. Declined NIPT. Knows it is a girl. 02/10/25 -?-?-?-?-?-?-?-?-?-?-?-?- 29w 2d 74.956 kg (+7956.139 g) 130/81 absent unknown 30 134 act melodie Good movement no contractions no loss of fluids H as cottage cheese discharge yellowish in color no odor with itch. Probable yeast vaginitis. Treat with Diflucan. 02/23/25 -?-?-?-?-?-?-?-?-?-?-?-?- 31w 1d 74.503 kg (+7502.546 g) 117/69 absent unknown 32 141 act melodie good movements 03/17/25 -?-?-?-?-?-?-?-?-?-?-?-?- 34w 2d 74.843 kg (+7842.741 g) 129/71 129/71 occasional cephalic 35 141 active good movements 03/28/25 -?-?-?-?-?-?-?-?-?-?-?-?- 35w 6d 75.523 kg (+8523.129 g) 122/77 absent cephalic 36 155 ac tive 0 -3 0 MILO Calculator Estimated Delivery Date Method Current WG Current Estimate 04/26/25 LMP (Certain) 35w 6d Expected Delivery Route/Plan -0-1-3 History of vaginal delivery x 3 babies weighed between 8 pounds 1 ounce and 8 pounds 11 ounces Has a 14-year-old daughter, 9-year-old son, 8-year-old son at home. AMA: Declined NIPT. On baby aspirin. For level 2 ultrasound. Specific Issue/Plans AMA: Declined NIPT. Level [address] Kirk normal. Notes Visit Date: 03/28/25 Last Updated by: Robyn Dewitt MD 34 years old L3 at 35.6 weeks /GDM on diet / Rh positive / Refused NIPT and second trimester scan normal with Dr Kirk / sterilization options ? vasectomy/ Flu Vaccine received on 03/17/2025 / Patient is planning to deliver at [facility] / recommended to take her records in hand / GBS done today / patient is going for NST and also reviewed sugar records / They are fairly controlled . she is encouraged to start metformin . she has picked it up but not started it yet / follow up 1 week / patient refuses blood transfusion under any circumstances Visit Date: 03/17/25 Last Updated by: Robyn Dewitt MD 34 years old L3 at 34.2 weeks /GDM on diet / Rh positive / Refused NIPT and second trimester scan normal with Dr Kirk / care follow up her today /discuss contraception/ sterilization options thinking about vasectomy / discussed flu vaccine /discussed diet and parameters for good glycemic control / follow up in 3 weeks / educated on kick count/ referred for Biweekly NST Visit Date: 02/10/25 Last Updated by: Delilah Benton ([facility])MD/ done at Dr Kirk on 03/06/2025 c/w growth in 99th percentile and patients Blood sugars are >100 fasting and PP are around 135 to 145 she refuses insulin and will start on metformin 500 mgm po bid / Keep sugar log and follow up in 2 weeks / VSD is resolved / Flu vaccine today / Biweekly NST ordered Patient failed glucose test fasting 101/1 hour 194/2-hour 140/3-hour 158. Will get her set up with diabetic counseling and glucometer. Patient bring her sugar log in. CBC and RPR ordered. Tdap given. Flu vaccine encouraged. Patient states she will go to her pharmacy to get a flu shot. Visit Date: 01/11/25 Last Updated by: Delilah Benton ([facility])MD Will do glucose challenge test today Now has 2 boys and will have 2 girls. Leg cramps recommended potassium 8 mEq and magnesium 250 mg. Visit Date: 12/12/24 Last Updated by: Delilah Benton ([facility])MD KRAUS WNL. GC-/Chlam- Visit Date: 11/14/24 Last Updated by: Delilah Benton ([facility])MD labs on the chart O+\antibody negative /rubella immune\RPR nonreactive\hepatitis C-\hepatitis B surface antigen negative\HIV negative\GC negative\chlamydia negative\hemoglobin 11.7. Visit Date: 02/23/25 Last Updated by: Robyn Dewitt MD patient has labs done 02/10/2025 and potter s a HbA1c of 5.2 and CBC shows Hb of 11.6 and platelets [id number] and RPR is NR 34 years old L3 at 31.1 weeks /GDM on diet / Rh positive / Refused NIPT and second trimester scan normal with Dr Kirk / care follow up her today /discuss contraception/ sterilization options thinking about vasectomy / discussed flu vaccine /discussed diet and parameters for good glycemic control / follow up in 3 weeks / educated on kick count Visit Date: 02/10/25 Last Updated by: Delilah Benton ([facility])MD Patient failed glucose test fasting 101/1 hour 194/2-hour 140/3-hour 158. Will get her set up with diabetic counseling and glucometer. Patient bring her sugar log in. CBC and RPR ordered. Tdap given. Flu vaccine encouraged. Patient states she will go to her pharmacy to get a flu shot. Visit Date: 01/11/25 Last Updated by: Delilah Benton ([facility])MD Will do glucose challenge test today Now has 2 boys and will have 2 girls. Leg cramps recommended potassium 8 mEq and magnesium 250 mg. Visit Date: 12/12/24 Last Updated by: Delilah Benton ([facility])MD KRAUS WNGeovanni. GC-/Chlam- Visit Date: 11/14/24 Last Updated by: [facility]ah [facility])MD labs on the chart O+\antibody negative /rubella immune\RPR nonreactive\hepatitis C-\hepatitis B surface antigen negative\HIV negative\GC negative\chlamydia negative\hemoglobin 11.7. Office Procedures [facility] Clinic LOC & Office Proc's Nursing/Assessment Patient Status: Established Patient OB Clinic Nursing Assessment: Medication Reconciliation, Update PMH in EMR and Vital Signs OB Clinic Coordination of Care: Consent,records obtained, informed consent, Education Simp Pt/Fam, Lab and Imaging orders, Results/Orders obtained and Staff clarify orders Special Needs: Heart tones Miscellaneous Interventions: Pelvic Comp w/OB cult Established Patient Charge Established Patient Point Assignment: 125 Established Patient Point Charge: EP Level 4 (120-155) Assessment & Plan Diagnosis / Problem List (1) LGA (large for gestational age) fetus: Status: Acute (2) Gestational diabetes mellitus (GDM): Status: Acute Qualifiers: Gestational diabetes mellitus control: unspecified Trimester: third trimester Qualified Code(s): O24.419 - Gestational diabetes mellitus in , unspecified control (3) Advanced maternal age (AMA) in : Status: Acute
== END 2025-03-28 10:02 | disposition home or self-care (01) ==
LOC: HODSOBC 09:23
PROVIDERS: Supervising Provider Obstetrics & Gynecology; Visit Provider Obstetrics & Gynecology
DX: O09.893 Supervision of other high risk pregnancies, third trimester (principal); O36.63X0 Maternal care for excessive fetal growth, third trimester, not applicable or unspecified; O24.410 Gestational diabetes mellitus in pregnancy, diet controlled; O09.523 Supervision of elderly multigravida, third trimester; Z3A.35 35 weeks gestation of pregnancy; Z67.40 Type O blood, Rh positive; Z53.29 Procedure and treatment not carried out because of patient's decision for other reasons; Z88.0 Allergy status to penicillin
CPT/HCPCS: 99214; G0463

== ENCOUNTER 2025-04-04 11:16 | Outpatient (AMB) | payer BC, SELFPAY ==
[2025-04-04 11:26] VITALS: BP 131/76; PULSE 76; RESP 18; TEMP 36.6; O2SAT 98; BMI 27.5
--- NOTE | 2025-04-04 11:26 | OBCLNT_ITS ---
Vital Signs 04/04/25 11:26 Height 1.65 m Height Method Stated Weight 75.013 kg Weight Measurement Method Standing Scale BMI 27.5 BP 131/76 H Blood Pressure Source Automatic Cuff Blood Pressure Location Right Upper Arm Position Sitting Respiration 18 Pulse 76 Pulse Source Monitor Temp 97.9 F Temp Source Temporal Artery Scan Pulse Oximetry (%) 98 Oxygen Delivery Method Room Air Allergies/Home Meds Allergies & Medications Allergies amoxicillin Allergy (Verified 04/04/25 11:28) PENCILLIN Allergy (Uncoded 04/04/25 11:28) Medication Reconciliation vitamin no.56-iron 35 mg and 5 mg-folic acid 1 mg-dha capsule 1 cap PO QDAY 10/12/24 [History Confirmed 04/04/25] blood sugar diagnostic (Blood Glucose Test strips) #10 ea 02/11/25 [Rx Confirmed 04/04/25] blood-glucose meter #1 ea 02/11/25 [Rx Confirmed 04/04/25] lancets #100 ea 02/11/25 [Rx Confirmed 04/04/25] Immunizations Immunizations Flu Vaccine in the Last 12 Months: No Flu Vaccine Exclusion Criteria: No Exclusion Criteria Care OB Visit Log OB Flowsheet Initial Weight: 67 kg Date -?-?-?-?-?-?-?-?-?-?-?-?- EGA Weight BP Alb Glu CTX Pres Fundal ht FHR Mov Dilation Station Effacement Hx Notes Visit Note 11/14/24 -?-?-?-?-?-?-?-?-?-?-?-?- 16w 5d 68.266 kg (+1265.651 g) 120/72 16 143 absent labs reviewed. Ultrasound at 7 weeks gives EDC of 04/22/2025 declines NIPT. Okay for level 2 ultrasound. 12/12/24 -?-?-?-?-?-?-?-?-?-?-?-?- 20w 5d 70.42 kg (+3420.215 g) 126/74 absent unknown 21 134 act melodie Good movement. No contractions or vaginal bleeding. No loss of fluids. Pap reviewed. She did have positive yeast but has no symptoms. 01/11/25 -?-?-?-?-?-?-?-?-?-?-?-?- 25w 0d 72.631 kg (+5631.478 g) 117/75 absent unknown 26 146 act melodie Goof FM No UCs or VB Reviewed level [address] Kirk. Small VSD otherwise normal anatomy. Plan for echo in 2 weeks and he ordered this. Declined NIPT. Knows it is a girl. 02/10/25 -?-?-?-?-?-?-?-?-?-?-?-?- 29w 2d 74.956 kg (+7956.139 g) 130/81 absent unknown 30 134 act melodie Good movement no contractions no loss of fluids H as cottage cheese discharge yellowish in color no odor with itch. Probable yeast vaginitis. Treat with Diflucan. 02/23/25 -?-?-?-?-?-?-?-?-?-?-?-?- 31w 1d 74.503 kg (+7502.546 g) 117/69 absent unknown 32 141 act melodie good movements 03/17/25 -?-?-?-?-?-?-?-?-?-?-?-?- 34w 2d 74.843 kg (+7842.741 g) 129/71 129/71 occasional cephalic 35 141 active good movements 03/28/25 -?-?-?-?-?-?-?-?-?-?-?-?- 35w 6d 75.523 kg (+8523.129 g) 122/77 absent cephalic 36 155 ac tive 0 -3 0 04/04/25 -?-?-?-?-?-?-?-?-?-?-?-?- 36w 6d 75.013 kg (+8012.838 g) 131/76 absent cephalic 37 144 ac tive MILO Calculator Estimated Delivery Date Method Current WG Current Estimate 04/26/25 LMP (Certain) 38w 1d Expected Delivery Route/Plan -0-1-3 History of vaginal delivery x 3 babies weighed between 8 pounds 1 ounce and 8 pounds 11 ounces Has a 14-year-old daughter, 9-year-old son, 8-year-old son at home. AMA: Declined NIPT. On baby aspirin. For level 2 ultrasound. Specific Issue/Plans AMA: Declined NIPT. Level [address] Kirk normal. Notes Visit Date: 04/04/25 Last Updated by: Robyn Dewitt MD GBS last visit/ not taking metformin though prescribed / NST Biweekly Thursday and / Fastings are above 105 and recommend to start Metformin BId and follow up with glucose log in 1 week /GBS result pending / discussed adding insulin at night , she will try metformin now / order US for EFW next NST Visit Date: 03/28/25 Last Updated by: Robyn Dewitt MD 34 years old L3 at 35.6 weeks /GDM on diet / Rh positive / Refused NIPT and second trimester scan normal with Dr Kirk / sterilization options ? vasectomy/ Flu Vaccine received on 03/17/2025 / Patient is planning to deliver at [facility] / recommended to take her records in hand / GBS done today / patient is going for NST and also reviewed sugar records / They are fairly controlled . she is encouraged to start metformin . she has picked it up but not started it yet / follow up 1 week / patient refuses blood transfusion under any circumstances Visit Date: 03/17/25 Last Updated by: Robyn Dewitt MD 34 years old L3 at 34.2 weeks /GDM on diet / Rh positive / Refused NIPT and second trimester scan normal with Dr Kirk / care follow up her today /discuss contraception/ sterilization options thinking about vasectomy / discussed flu vaccine /discussed diet and parameters for good glycemic control / follow up in 3 weeks / educated on kick count/ referred for Biweekly NST Visit Date: 02/10/25 Last Updated by: Delilah Benton ([facility])MD/ Us done at Dr Kirk on 03/06/2025 c/w growth in 99th percentile and patients Blood sugars are >100 fasting and PP are around 135 to 145 she refuses insulin and will start on metformin 500 mgm po bid / Keep sugar log and follow up in 2 weeks / VSD is resolved / Flu vaccine today / Biweekly NST ordered Patient failed glucose test fasting 101/1 hour 194/2-hour 140/3-hour 158. Will get her set up with diabetic counseling and glucometer. Patient bring her sugar log in. CBC and RPR ordered. Tdap given. Flu vaccine encouraged. Patient states she will go to her pharmacy to get a flu shot. Visit Date: 01/11/25 Last Updated by: Delilah Benton ([facility])MD Will do glucose challenge test today Now has 2 boys and will have 2 girls. Leg cramps recommended potassium 8 mEq and magnesium 250 mg. Visit Date: 12/12/24 Last Updated by: Delilah Benton ([facility])MD PAP WNL. GC-/Chlam- Visit Date: 11/14/24 Last Updated by: Delilah Benton ([facility])MD labs on the chart O+\antibody negative /rubella immune\RPR nonreactive\hepatitis C-\hepatitis B surface antigen negative\HIV negative\GC negative\chlamydia negative\hemoglobin 11.7. Visit Date: 02/23/25 Last Updated by: Robyn Dewitt MD patient has labs done 02/10/2025 and potter s a HbA1c of 5.2 and CBC shows Hb of 11.6 and platelets [id number] and RPR is NR 34 years old L3 at 31.1 weeks /GDM on diet / Rh positive / Refused NIPT and second trimester scan normal with Dr Kirk / care follow up her today /discuss contraception/ sterilization options thinking about vasectomy / discussed flu vaccine /discussed diet and parameters for good glycemic control / follow up in 3 weeks / educated on kick count Visit Date: 02/10/25 Last Updated by: Delilah Benton ([facility])MD Patient failed glucose test fasting 101/1 hour 194/2-hour 140/3-hour 158. Will get her set up with diabetic counseling and glucometer. Patient bring her sugar log in. CBC and RPR ordered. Tdap given. Flu vaccine encouraged. Patient states she will go to her pharmacy to get a flu shot. Visit Date: 01/11/25 Last Updated by: Delilah Benton ([facility])MD Will do glucose challenge test today Now has 2 boys and will have 2 girls. Leg cramps recommended potassium 8 mEq and magnesium 250 mg. Visit Date: 12/12/24 Last Updated by: Delilah Benton ([facility])MD PAP WNL. GC-/Chlam- Visit Date: 11/14/24 Last Updated by: Delilah Benton ([facility])MD labs on the chart O+\antibody negative /rubella immune\RPR nonreactive\hepatitis C-\hepatitis B surface antigen negative\HIV negative\GC negative\chlamydia negative\hemoglobin 11.7. Office Procedures [facility] LOC & Office Proc's Nursing/Assessment Patient Status: Established Patient [facility] Nursing Assessment: Medication Reconciliation, Update PMH in EMR and Vital Signs [facility] Coordination of Care: Complex Care and Chronic Disease 1-5, Education Complex Pt/Fam, Consent,records obtained, informed consent, Lab and Imaging orders, Results/Orders obtained and Staff clarify orders Special Needs: Heart tones Established Patient Charge Established Patient Point Assignment: 140 Established Patient Point Charge: EP Level 4 (120-155) Assessment & Plan Diagnosis / Problem List (1) LGA (large for gestational age) fetus: Status: Acute (2) Gestational diabetes mellitus (GDM): Status: Acute Qualifiers: Gestational diabetes mellitus control: unspecified Trimester: third trimester Qualified Code(s): O24.419 - Gestational diabetes mellitus in , unspecified control (3) Advanced maternal age (AMA) in : Status: Acute Additional Assessment GBS last visit/ not taking metformin though prescribed / NST Biweekly Thursday and / Fastings are above 105 and recommend to start Metformin BId and follow up with glucose log in 1 week /GBS result pending / discussed adding insulin at night , she will try metformin now / order US for EFW next NST
== END 2025-04-04 12:31 | disposition home or self-care (01) ==
LOC: HODSOBC 11:16
PROVIDERS: Supervising Provider Obstetrics & Gynecology; Visit Provider Obstetrics & Gynecology
DX: O09.893 Supervision of other high risk pregnancies, third trimester (principal); O36.63X0 Maternal care for excessive fetal growth, third trimester, not applicable or unspecified; O24.415 Gestational diabetes mellitus in pregnancy, controlled by oral hypoglycemic drugs; O09.523 Supervision of elderly multigravida, third trimester; Z3A.36 36 weeks gestation of pregnancy; O9A.213 Injury, poisoning and certain other consequences of external causes complicating pregnancy, third trimester; T38.3X6A Underdosing of insulin and oral hypoglycemic [antidiabetic] drugs, initial encounter; Z91.148 Patient's other noncompliance with medication regimen for other reason; Z88.0 Allergy status to penicillin
CPT/HCPCS: 99214; G0463

== ENCOUNTER 2025-04-06 09:25 | Outpatient (RCR) | payer BC, SELFPAY ==
--- NOTE | 2025-03-20 09:50 | XR_ITS ---
EXAMINATION: US OB biophysical profile ORDERING PROVIDER: Robyn Dewitt MD HISTORY: BIWEEKLY NST/BPP; GDM TECHNIQUE: Multiple transabdominal sonographic images were obtained by radiologic technologist and submitted for interpretation. COMPARISON: 10/31/2024, size and dates ultrasound. FINDINGS: FETUS: Fox. PRESENTATION: Cephalic. HEART MOTION: 150 beats/min. AMNIOTIC FLUID INDEX: 14.8 cm BREATHING MOVEMENT: 2 . GROSS BODY MOVEMENT: 2 . TONE: 2 . QUALITATIVE AMNIOTIC FLUID VOLUME: 2 TOTAL BIOPHYSICAL PROFILE: 8 of 8 . IMPRESSION: Single live intrauterine gestation with biophysical profile 8 of 8.
[2025-03-20 10:27] VITALS: BP 121/59; PULSE 85; RESP 16; TEMP 36.8
--- NOTE | 2025-03-27 09:38 | XR_ITS ---
Examination: Biophysical profile, ultrasound Date and time of exam: March 27, 2025, 0942 hours INDICATIONS: Diagnosis gestational diabetes Technique: Multiple transabdominal sonographic images of the pelvis abdomen obtained. Attention is directed to the breathing movement, gross body movement, amniotic fluid volume and tone. Findings: Amniotic fluid index 8.6 cm Total biophysical profile is 8 of 8. breathing movement is 2. Gross body movement is 2. tone is 2. Qualitative amniotic fluid volume is 2 Impression: Biophysical profile is 8 of 8.
[2025-03-27 10:46] VITALS: BP 123/66; PULSE 73; RESP 16; TEMP 36.5
--- NOTE | 2025-03-30 09:46 | XR_ITS ---
Examination: Biophysical profile, ultrasound Date and time of exam: March 30, 2025, 0952 hours INDICATIONS: Diagnosis gestational diabetes Technique: Multiple transabdominal sonographic images of the pelvis abdomen obtained. Attention is directed to the breathing movement, gross body movement, amniotic fluid volume and tone. Findings: Amniotic fluid index 8.5 cm Total biophysical profile is 8 of 8. breathing movement is 2. Gross body movement is 2. tone is 2. Qualitative amniotic fluid volume is 2 Impression: Biophysical profile is 8 of 8.
[2025-03-30 10:19] VITALS: BP 119/66; PULSE 75; RESP 16; TEMP 36.7
--- NOTE | 2025-04-03 09:39 | XR_ITS ---
Examination: Biophysical profile, ultrasound Date and time of exam: April 03, 2025, 0948 hours INDICATIONS: Diagnosis gestational diabetes Technique: Multiple transabdominal sonographic images of the pelvis abdomen obtained. Attention is directed to the breathing movement, gross body movement, amniotic fluid volume and tone. Findings: Amniotic fluid index 7.1 cm Total biophysical profile is 8 of 8. breathing movement is 2. Gross body movement is 2. tone is 2. Qualitative amniotic fluid volume is 2 Impression: Biophysical profile is 8 of 8.
[2025-04-03 10:23] VITALS: BP 122/70; PULSE 73; RESP 16; TEMP 36.7
--- NOTE | 2025-04-06 09:43 | XR_ITS ---
Examination: Biophysical profile, ultrasound Date and time of exam: April 06, 2025, 0932 hours INDICATIONS: Diagnosis gestational diabetes Technique: Multiple transabdominal sonographic images of the pelvis abdomen obtained. Attention is directed to the breathing movement, gross body movement, amniotic fluid volume and tone. Findings: Amniotic fluid index 10.4 cm Total biophysical profile is 8 of 8. breathing movement is 2. Gross body movement is 2. tone is 2. Qualitative amniotic fluid volume is 2 Impression: Biophysical profile is 8 of 8.
[2025-04-06 09:55] VITALS: BP 130/74; PULSE 86; RESP 16; TEMP 36.9
== END 2025-04-06 23:59 | disposition home or self-care (01) ==
LOC: S4S1 09:25
PROVIDERS: Referring Provider Obstetrics & Gynecology; Visit Provider Obstetrics & Gynecology
DX: O24.419 Gestational diabetes mellitus in pregnancy, unspecified control (principal); O09.523 Supervision of elderly multigravida, third trimester; Z3A.37 37 weeks gestation of pregnancy
CPT/HCPCS: 59025; 76819